=== PATIENT | female | born 1965 | race Caucasian/White ===

== ENCOUNTER → 2017-08-13 | Outpatient (CLI) | payer BC, OTHER ==
[~2017-08-13] MED LIST: NORETHIN-ETH E1 EACH PO; PAROXETINE HCL20 M1 PO; [UNRECOGNIZED DRUG - OTHER] PO
--- NOTE | ~2017-08-13 | EKG ---
PATIENT: GABBY, ACHILLE UNIT #: [id number] Ventricular Rate: 66 BPM Atrial Rate: 66 BPM P-R Interval: 150 ms QRS Duration: 88 ms Q-T Interval: 416 ms QTC Calculation(Bezet): 436 ms P Osgood: 0 degrees Calculated R Osgood: 17 degrees Calculated T Osgood: 24 degrees Diagnosis Line: Normal sinus rhythm Diagnosis Line: Low voltage QRS Diagnosis Line: Borderline ECG Diagnosis Line: No previous ECGs available Diagnosis Line: Confirmed by MODESTO THAPA MD ([id number]) on Diagnosis Line: 08/13/2017 12:40:45 PM INTERPRETING MD: ALANIS VILLAR
[2017-08-13 10:26] LABS: BUN/CREATININE RATIO 17.5; CALCIUM SERUM 9.3 mg/dL (8.4-10.2); CREATININE SERUM 0.8 mg/dL (0.6-1.4); POTASSIUM 4.2 mmol/L (3.5-5.1)
== END | disposition home or self-care (01) ==
LOC: CAMB 08:00
PROVIDERS: Surgery
DX: Z01.818 Encounter for other preprocedural examination (principal); K43.9 Ventral hernia without obstruction or gangrene
CPT/HCPCS: 36415; 80048; 93005